=== PATIENT | female | born 1995 | race African-American/Black ===

== ENCOUNTER 2016-10-18 22:07 | Emergency (ER) | payer OTHER ==
[~2016-10-18] VITALS: Ht 157.5 cm; Wt 83.0 kg
[~2016-10-18 22:07] MED LIST: DEPO-PROVE150 MG/11 IM
[2016-10-19 00:15] VITALS: BP 132/84
== END 2016-10-19 00:16 | disposition home or self-care (01) ==
LOC: ER 22:07
DX: S27.818A Other injury of esophagus (thoracic part), initial encounter (principal); X58.XXXA Exposure to other specified factors, initial encounter; Y93.89 Activity, other specified; Y92.89 Other specified places as the place of occurrence of the external cause; Y99.8 Other external cause status

== ENCOUNTER 2018-03-30 21:10 | Emergency (ER) | payer OTHER ==
[~2018-03-30] VITALS: Ht 154.9 cm; Wt 74.4 kg
[2018-03-30 21:24] VITALS: BP 139/92
[2018-03-30] MEDS ORDERED: ERRIN0.35 MG PO (21:27)
[2018-03-30] MEDS ORDERED: PENICILLIN V P500 MG PO (21:41)
== END 2018-03-30 22:20 | disposition home or self-care (01) ==
LOC: ER 21:10
DX: K02.9 Dental caries, unspecified (principal); R51 Headache

== ENCOUNTER 2018-05-09 23:53 | Emergency (ER) | payer OTHER ==
[~2018-05-09] VITALS: Ht 154.9 cm; Wt 73.9 kg
--- NOTE | ~2018-05-09 | EKG ---
[place] [address] [facility] [place] [address] ELECTROCARDIOGRAM REPORT Name: BETTETRACYRAMA Dominique Room #: [facility]#: [id number] Admission: 05/09/18 Attend Phys: Discharge: 05/10/18 Date of : [birth year] Report #: [id number] THIS REPORT FOR: //name// [facility] ED Test Date: 2018-05-10 Test Time: 01:08:33 Pat Name: GABI AMOS Department: Room: Gender: F Proof Clerk: pedro luis : 1995 Requested By: Ajay Rojas Order Number: [id number] MD: Mani Cuellar Measurements Intervals [place] Rate: 56 P: 42 VA: 191 QRS: 56 QRSD: 84 T: 49 QT: 412 QTc: 398 Interpretive Statements Sinus bradycardia Otherwise Normal tracing Compared to ECG 04/02/2014 20:43:09 No significant change was found Electronically Signed On 05-10-2018 7:59:17 CDT by Mani Cuellar [email or web address] <ELECTRONICALLY SIGNED> By: Mani Cuellar MD, [facility] 05/10/18 [id number] Mani Cuellar MD, FACC /EPI
[~2018-05-09 23:53] MED LIST changes: +ERRIN0.35 MG PO; +PENICILLIN V P500 MG PO
[2018-05-10 00:47] LABS: ABSOLUTE NEUTROPHILS 1.7 thou/uL (1.4-8.2); BASOPHILS 0.7 % (0.0-2.0); EOSINOPHILS 1.3 % (0.0-3.0); HEMATOCRIT 35.7 % (37.0-47.0); HEMOGLOBIN 12.1 gm/dL (12.0-15.0); LYMPHOCYTES 54.9 % (24.0-44.0); MCH 31.8 pg (26.0-34.0); MCV 93.6 fL (80.0-100.0); MONOCYTES 6.7 % (1.0-8.0); PLATELET COUNT 218 thou/uL (150-400); POLYS 36.4 % (36.0-66.0); RBC 3.82 mil/uL (4.20-5.00); RDW 13.7 % (10.5-14.5); WBC 4.7 thou/uL (4.0-11.0)
[2018-05-10 00:52] LABS: ANION GAP 10 mmol/L (7-16); BUN 11 mg/dL (7-18); CALCIUM 8.5 mg/dL (8.5-10.1); CHLORIDE 103 mmol/L (98-107); CO2 26 mmol/L (21-32); CREATININE 0.7 mg/dL (0.6-1.0); GLUCOSE 106 mg/dL (74-106); POTASSIUM 3.6 mmol/L (3.5-5.1); SODIUM 139 mmol/L (136-145)
[2018-05-10 00:59] LABS: ALBUMIN 3.4 g/dL (3.4-5.0); MAGNESIUM 1.6 mg/dL (1.8-2.4); SGOT 16 U/L (15-37); SGPT 19 U/L (30-65); TOTAL BILIRUBIN 0.3 mg/dL (<0.1-1.0); TOTAL PROTEIN 7.5 g/dL (6.4-8.2); TROPONIN-I <0.06 ng/mL (<0.06)
[2018-05-10 01:21] LABS: URINE BILIRUBIN NEGATIVE (Negative); URINE BLOOD NEGATIVE (Negative); URINE CLARITY CLEAR; URINE COLOR YELLOW; URINE GLUCOSE-RANDOM* NEGATIVE (Negative); URINE KETONES NEGATIVE (Negative); URINE LEUKOCYTES-REFLEX NEGATIVE (Negative); URINE NITRITE-REFLEX NEGATIVE (Negative); URINE PROTEIN (DIPSTICK) NEGATIVE (Negative); URINE UROBILINOGEN 0.2 E.U./dl (0.2-1.0)
[2018-05-10] MEDS ORDERED: ANTIVERT25 MG PO (01:51)
[2018-05-10 02:03] VITALS: BP 132/74
== END 2018-05-10 02:03 | disposition home or self-care (01) ==
LOC: ER 23:53
PROVIDERS: Emergency Medicine
DX: R42 Dizziness and giddiness (principal); R51 Headache; H53.8 Other visual disturbances

== ENCOUNTER 2018-07-26 19:39 | Emergency (ER) | payer OTHER ==
[~2018-07-26] VITALS: Ht 154.9 cm; Wt 71.2 kg
[~2018-07-26 19:39] MED LIST changes: +ANTIVERT25 MG PO
[2018-07-26 19:43] VITALS: BP 114/65
[2018-07-26] MEDS ORDERED: KEFLEX500 M1 PO (20:03)
== END 2018-07-26 20:17 | disposition home or self-care (01) ==
LOC: ER 19:39
DX: N61.0 Mastitis without abscess (principal)

== ENCOUNTER 2018-12-27 13:30 | Emergency (ER) | payer OTHER ==
[~2018-12-27] VITALS: Ht 154.9 cm; Wt 68.5 kg
[~2018-12-27 13:30] MED LIST changes: +KEFLEX500 M1 PO
[2018-12-27 16:48] VITALS: BP 139/86
[2018-12-27] MEDS ORDERED: MOBIC15 MG PO (16:52)
[2018-12-27] MEDS ORDERED: CYCLOBENZAPRINE5 MG PO (16:52)
== END 2018-12-27 16:48 | disposition home or self-care (01) ==
LOC: ER 13:30
DX: S39.012A Strain of muscle, fascia and tendon of lower back, initial encounter (principal); R51 Headache; V89.2XXA Person injured in unspecified motor-vehicle accident, traffic, initial encounter; Y93.89 Activity, other specified; Y92.89 Other specified places as the place of occurrence of the external cause; Y99.8 Other external cause status

== ENCOUNTER 2019-08-31 20:23 | Emergency (ER) | payer OTHER ==
[~2019-08-31] VITALS: Ht 152.4 cm; Wt 81.7 kg
[~2019-08-31 20:23] MED LIST changes: +CYCLOBENZAPRINE5 MG PO; +MOBIC15 MG PO
[2019-08-31 20:56] LABS: URINE BILIRUBIN NEGATIVE (Negative); URINE BLOOD 1+ (Negative); URINE CLARITY CLEAR; URINE COLOR YELLOW; URINE GLUCOSE-RANDOM* NEGATIVE (Negative); URINE KETONES 1+ (Negative); URINE LEUKOCYTES-REFLEX NEGATIVE (Negative); URINE NITRITE-REFLEX NEGATIVE (Negative); URINE PROTEIN (DIPSTICK) TRACE (Negative); URINE SPECIFIC GRAVITY >= 1.030 (1.005-1.035); URINE UROBILINOGEN 0.2 E.U./dl (0.2-1.0)
[2019-08-31 21:06] LABS: SQUAMOUS 4-10 Moderate /LPF (0-3)
[2019-08-31 21:07] LABS: BACTERIA-REFLEX 1-9 Few /HPF (None Seen); CASTS None Seen /LPF (None Seen); CRYSTALS None Seen /LPF (None Seen); URINE RBC 0-2 Rare /HPF (0-2); URINE WBC-REFLEX None Seen /HPF (0-5)
[2019-08-31 22:12] LABS: HEMATOCRIT 41.5 % (37.0-47.0); HEMOGLOBIN 13.6 gm/dL (12.0-15.0); MCHC 32.8 g/dL (28.0-37.0); MCV 94.5 fL (80.0-100.0); PLATELET COUNT 184 thou/uL (150-400); RBC 4.39 mil/uL (4.20-5.00); RDW 13.8 % (10.5-14.5); WBC 2.4 thou/uL (4.0-11.0)
[2019-08-31 22:20] LABS: CALCIUM 8.5 mg/dL (8.5-10.1); CREATININE 0.8 mg/dL (0.6-1.0); POTASSIUM 3.7 mmol/L (3.5-5.1)
[2019-08-31 22:25] LABS: ALBUMIN 3.5 g/dL (3.4-5.0); TOTAL BILIRUBIN 0.5 mg/dL (<0.1-1.0)
[2019-08-31 22:32] LABS: ABSOLUTE NEUTROPHILS 0.6 thou/uL (1.4-8.2)
[2019-08-31 22:33] LABS: ANISOCYTOSIS 1+
[2019-08-31] MEDS ORDERED: ONDANSETRON HCL4 M2 PO (22:36)
[2019-08-31] MEDS ORDERED: LOPERAMIDE 2 MG2 M1 PO (22:36)
[2019-08-31 23:30] VITALS: BP 110/77
== END 2019-08-31 23:30 | disposition home or self-care (01) ==
LOC: ER 20:23
PROVIDERS: Emergency Medicine; Physician Assistant
DX: J11.1 Influenza due to unidentified influenza virus with other respiratory manifestations (principal); R19.7 Diarrhea, unspecified; R11.2 Nausea with vomiting, unspecified

== ENCOUNTER 2020-02-28 23:05 | Emergency (ER) | payer OTHER ==
[~2020-02-28] VITALS: Ht 154.9 cm; Wt 95.3 kg
[~2020-02-28 23:05] MED LIST changes: +LOPERAMIDE 2 MG2 M1 PO; +ONDANSETRON HCL4 M2 PO
[2020-02-28 23:09] VITALS: BP 112/75
[2020-02-28] MEDS ORDERED: DEPO-PROVER150 MG/M1 IM (23:14)
== END 2020-02-29 00:45 | disposition home or self-care (01) ==
LOC: ER 23:05
DX: S91.114A Laceration without foreign body of right lesser toe(s) without damage to nail, initial encounter (principal); Z79.899 Other long term (current) drug therapy; W22.8XXA Striking against or struck by other objects, initial encounter; Y93.89 Activity, other specified; Y92.89 Other specified places as the place of occurrence of the external cause; Y99.8 Other external cause status

== ENCOUNTER 2020-03-10 13:08 | Emergency (ER) | payer OTHER ==
[~2020-03-10] VITALS: Ht 154.9 cm; Wt 93.0 kg
[~2020-03-10 13:08] MED LIST changes: +DEPO-PROVER150 MG/M1 IM
[2020-03-10 13:12] VITALS: BP 119/75
== END 2020-03-10 13:34 | disposition home or self-care (01) ==
LOC: ER 13:08
DX: S91.312D Laceration without foreign body, left foot, subsequent encounter (principal); Z79.899 Other long term (current) drug therapy; X58.XXXD Exposure to other specified factors, subsequent encounter